=== PATIENT | male | born 1930 | race Caucasian/White ===

== ENCOUNTER 2021-01-08 18:46 | Outpatient (CLI) | payer MEDICARE | END 2021-01-08 18:47 | disposition critical access hospital (66) | LOC: EMS 18:46 | DX: R11.10 Vomiting, unspecified (principal) | CPT/HCPCS: A0425; A0429 ==

== ENCOUNTER 2021-01-08 19:02 | Inpatient (IN) | payer MEDICARE ==
[2021-01-08] MEDS ORDERED: CEFEPIME 2 GM in SODIUM CHLORIDE 0.9% MINIBAG 100 ML IV STA (19:16)
[2021-01-08] MEDS ORDERED: metroNIDAZOLE 500 MG/100 ML 500 MG/100 ML BAG IV STA (19:16)
[2021-01-08] MEDS ORDERED: SODIUM CHLORIDE 0.9% 2,544.66 ML IV STA (19:16)
[2021-01-08 19:29] LABS: BASOPHILS % (AUTO) 0.2 %; EOSINOPHILS % (AUTO) 0.1 %; HCT - HEMATOCRIT 35.3 % (42.0-52.0); HGB - HEMOGLOBIN 12.1 g/dL (14.0-18.0); LYMPHOCYTES # (AUTO) 0.2 10^3/uL (1.5-3.5); LYMPHOCYTES % (AUTO) 1.5 %; MEAN CORPUSCULAR HGB CONC 34.3 g/dL (32.0-36.0); MEAN CORPUSCULAR VOLUME 96.2 fL (80.0-94.0); MEAN PLATELET VOLUME 8.8 fL (7.4-11.4); MONOCYTES # (AUTO) 0.4 10^3/uL (0.0-1.0); MONOCYTES % (AUTO) 2.6 %; NEUTROPHILS # (AUTO) 14.4 10^3/uL (1.5-6.6); NEUTROPHILS % (AUTO) 95.1 %; PLT - PLATELET COUNT 112 10^3/uL (130-450); RED BLOOD COUNT 3.67 10^6/uL (4.70-6.10); RED CELL DISTRIBUTION WIDTH 14.2 % (12.0-15.0); WHITE BLOOD COUNT 15.1 x10^3/uL (4.8-10.8)
[2021-01-08 19:42] LABS: ALBUMIN/GLOBULIN RATIO 1.3 (1.0-2.2); BILIRUBIN,TOTAL 1.7 mg/dL (0.2-1.0); CALCIUM 9.1 mg/dL (8.5-10.3); CREATININE 1.8 mg/dL (0.6-1.2)
--- NOTE | 2021-01-08 19:42 | ED Physician Documentation ---
PD HPI NVD - Stated complaint Stated Complaint: FEVER, VOMITING - Chief complaint Chief Complaint: Fever - History obtained from History obtained from: Patient - History of Present Illness Timing - onset: Today Timing - duration: Hours Timing - details: Gradual onset, Still present Associated symptoms: Abdominal pain, Other (vomiting and fever) Similar symptoms before: Has not had sx before Recently seen: Not recently seen - Additonal information Additional information: 89-year-old male who is a resident of [facility] went for a bus ride today and missed lunch and when he returned he developed nausea vomiting and abdominal pain. He developed a fever with this and was transported to the hospital. The patient presents to the hospital a bit confused and a poor historian. Review of Systems Constitutional: reports: Fever Eyes: denies: Decreased vision Ears: denies: Ear pain Nose: denies: Congestion Throat: denies: Sore throat Cardiac: denies: Chest pain / pressure, Palpitations Respiratory: denies: Dyspnea, Cough GI: reports: Abdominal Pain, Nausea, Vomiting. denies: Diarrhea : denies: Dysuria, Frequency Skin: denies: Rash Musculoskeletal: denies: Neck pain, Back pain, Extremity pain PD PAST MEDICAL HISTORY - Allergies Allergies/Adverse Reactions: Allergies Allergy/AdvReac Type Severity Reaction Status Date / Time No Known Drug Allergies Allergy Verified 01/08/21 19:13 - Social History Does the pt smoke?: No Smoking Status: Never smoker PD ED PE NORMAL - Vitals Vital signs reviewed: Yes (febrile and hypertensive ) - General General: Well developed/nourished, Other (There is an obvious delay in execution of motor commands and the speech is low and delayed.) - HEENT HEENT: Atraumatic, PERRL - Neck Neck: Supple, no meningeal sign - Cardiac Cardiac: RRR, No murmur - Respiratory Respiratory: No respiratory distress, Other (Bibasilar rhonchi is present) - Abdomen Abdomen: Normal bowel sounds, Soft, Non distended, No organomegaly, Other (There is mild tenderness to the right upper quadrant with a positive Villegas sign and the tenderness is not exquisite.) - Back Back: No CVA TTP, No spinal TTP - Derm Derm: Normal color, Warm and dry, No rash - Extremities Extremities: No deformity, Other (There is trace edema bilaterally which patient states is normal) - Neuro Neuro: grader patrol 2-12 intact, No motor deficit, No sensory deficit, Normal speech Eye Opening: Spontaneous Motor: Obeys Commands Verbal: Confused GCS Score: 14 - Psych Psych: Normal mood, Normal affect Results - Vitals Vitals: Vital Signs - 24 hr 01/08/21 01/08/21 01/08/21 19:09 19:25 19:55 Temperature 38.1 C H Heart Rate 89 90 92 Respiratory 14 27 H 23 Rate Blood Pressure 147/72 H 143/71 H 143/71 H O2 Saturation 93 93 95 01/08/21 01/08/21 01/08/21 20:25 20:30 21:03 Temperature 38.1 C H 38.1 C H Heart Rate 88 87 89 Respiratory 19 19 23 Rate Blood Pressure 163/80 H 161/83 H 138/71 H O2 Saturation 94 94 91 L 01/08/21 01/08/21 21:33 22:00 Temperature 38.8 C H 37.2 C Heart Rate 93 90 Respiratory 21 18 Rate Blood Pressure 117/54 L 125/70 O2 Saturation 94 93 Oxygen O2 Source Room air - Labs Labs: Laboratory Tests 01/08/21 01/08/21 01/08/21 19:20 19:20 19:20 WBC 15.1 H RBC 3.67 L Hgb 12.1 L Hct 35.3 L MCV 96.2 H MCH 33.0 H MCHC 34.3 RDW 14.2 Plt Count 112 L MPV 8.8 Neut # (Auto) 14.4 H Lymph # (Auto) 0.2 L [place] # (Auto) 0.4 Eos # (Auto) 0.0 Baso # (Auto) 0.0 Absolute Nucleated RBC 0.00 Nucleated RBC % 0.0 Sodium 138 Potassium 3.0 L Chloride 103 Carbon Dioxide 25 Anion Gap 10.0 BUN 21 H Creatinine 1.8 H Estimated GFR (MDRD) 36 L Glucose 135 H Lactic Acid 1.5 Calcium 9.1 Total Bilirubin 1.7 H AST 20 ALT 18 Alkaline Phosphatase 72 Total Protein 7.0 Albumin 4.0 Globulin 3.0 Albumin/Globulin Ratio 1.3 Urine Color Urine Clarity Urine pH Ur Specific [place] Urine Protein Urine Glucose (UA) Urine Ketones Urine Occult Blood Urine Nitrite Urine Bilirubin Urine Urobilinogen Ur Leukocyte Esterase Urine RBC Urine WBC Ur Squamous Epith Cells Urine Bacteria Urine Mucus Urine Culture Comments 01/08/21 20:05 WBC RBC Hgb Hct MCV MCH MCHC RDW Plt Count MPV Neut # (Auto) Lymph # (Auto) [place] # (Auto) Eos # (Auto) Baso # (Auto) Absolute Nucleated RBC Nucleated RBC % Sodium Potassium Chloride Carbon Dioxide Anion Gap BUN Creatinine Estimated GFR (MDRD) Glucose Lactic Acid Calcium Total Bilirubin AST ALT Alkaline Phosphatase Total Protein Albumin Globulin Albumin/Globulin Ratio Urine Color YELLOW Urine Clarity CLEAR Urine pH 6.0 Ur Specific [place] 1.020 Urine Protein >=300 H Urine Glucose (UA) NEGATIVE Urine Ketones NEGATIVE Urine Occult Blood TRACE-INTA Urine Nitrite NEGATIVE Urine Bilirubin NEGATIVE Urine Urobilinogen 0.2 (NORMAL) Ur Leukocyte Esterase NEGATIVE Urine RBC 0-5 Urine WBC 0-3 Ur Squamous Epith Cells RARE Squamous Urine Bacteria None Seen Urine Mucus Few Strands Urine Culture Comments NOT INDICATED - Rads (name of study) chest Radiology: Prelim report reviewed (Impression: Scattered scarring/atelectasis versus mild aspiration. No acute consolidation. High density presumed calcific granuloma projecting over the right lung base although this could be confirmed with follow-up chest radiographs to document long-term stability given the absence of any prior s), EMP read indepedently, See rad report Procedures - Bedside sono Bedside sono by EMP: With use bedside ultrasound the gallbladder is imaged. it is sonographically mil dly tender and there is evidence of pericholecystic fluid and a thickened gallbladder wall and shadowing stones. The gallbladder is distended to 10cm. PD MEDICAL DECISION MAKING - ED course Complexity details: reviewed results, re-evaluated patient, considered differential, d/w patient, d/w family ED course: Gallbladder ultrasound: Impression: Cholelithiasis and distended gallbladder. Intrahepatic bile duct dilation. Recommend clinical correlation to exclude acute Monica cystitis. No gallbladder wall thickening or pericholecystic fluid. No sonographic Villegas sign. Coarsely echogenic liver suggest hepatic steatosis/diffuse hepatocellular disease. Please correlate with LFTs. Hepatic and renal cyst. 89-year-old male new to the area has some mild dementia and he is more confused than usual today his son presents to the bedside is able to assist with further history. The patient has had kidney cancer and has had one kidney removed. He presents today with a fever elevated white count, potential infiltrate on chest x-ray and he is vomiting with abdominal pain and on initial evaluation has a tender right upper quadrant and concerns for cholecystitis. The patient is administered intravenous fluids cefepime, Flagyl and Tylenol. He is started on sepsis protocol blood cultures were obtained urine is unremarkable.Dr. Davis is consulted in the case and will be available for consultation. A call is placed to the hospitalist Dr. Miranda Fuller at [phone]. Departure - Departure Disposition: 66 [facility] DC/Xfer Clinical Impression: Pneumonia Qualifiers: Pneumonia type: aspiration pneumonia Aspiration pneumonia type: unspecified Laterality: right Lung location: lower lobe of lung Qualified Code(s): J69.0 - Pneumonitis due to inhalation of food and vomit Cholelithiasis Qualifiers: Cholelithiasis location: gallbladder Cholecystitis presence: without cholecystitis Biliary obstruction: without biliary obstruction Qualified Code(s): K80.20 - Calculus of gallbladder without cholecystitis without obstruction Condition: Stable
--- NOTE | 2021-01-08 20:03 | XRAY Report ---
PROCEDURE: Chest 1 View X-Ray INDICATIONS: chest pain TECHNIQUE: One view of the chest was acquired. COMPARISON: None. FINDINGS: Surgical changes and devices: None. Lungs and pleura: No pleural effusions or pneumothorax. Scattered atelectasis. There is high density presumed calcified granuloma projecting in the right lung base measuring 5 mm. Mediastinum: Mediastinal contours appear normal. Heart size is normal. Bones and chest wall: No suspicious bony lesions. Overlying soft tissues appear unremarkable. IMPRESSION: Scattered scarring/atelectasis versus mild aspiration. No acute consolidation. High density presumed calcified granuloma projecting the right lung base although this could be confi rmed with follow-up chest radiographs to document long-term stability given the absence of any prior studies. Reviewed by: Baljit Marsh MD on 01/08/2021 8:01 PM PDT Approved by: Baljit Marsh MD on 01/08/2021 8:01 PM PDT Station ID: [id number]
[2021-01-08] MEDS ORDERED: ACETAMINOPHEN 325 MG TABLET PO STA (20:15)
[2021-01-08 20:16] LABS: BILIRUBIN,URINE NEGATIVE (NEGATIVE); GLUCOSE, URINE (UA) NEGATIVE (NEGATIVE); KETONES,URINE (UA) NEGATIVE (NEGATIVE); LEUKOCYTE ESTERASE, URINE NEGATIVE (NEGATIVE); NITRITE,URINE NEGATIVE (NEGATIVE); OCCULT BLOOD,URINE TRACE-INTA (NEGATIVE); PROTEIN,URINE >=300 mg/dL (NEGATIVE); UROBILINOGEN,URINE 0.2 (NORMAL) E.U./dL (NORMAL)
[2021-01-08 20:24] LABS: BACTERIA,URINE None Seen /HPF (None Seen); CLARITY,URINE CLEAR (CLEAR); MUCUS,URINE Few Strands; RBC,URINE 0-5 /HPF (0-5); SQUAMOUS EPITHELIAL CELL,UR RARE Squamous (<= Few); WBC,URINE 0-3 /HPF (0-3)
[2021-01-08] MEDS ORDERED: POTASSIUM CHLOR 10 MEQ/100 ML 10 MEQ/100 ML BAG IV ONE (20:40)
--- NOTE | 2021-01-08 21:47 | Ultrasound Report ---
PROCEDURE: Abdomen Limited INDICATIONS: RUQ pain fever vomiting TECHNIQUE: Real-time focused scanning was performed of the abdomen, with image documentation. COMPARISON: None. FINDINGS: The liver demonstrates coarse echogenicity and multiple cysts measuring up to 4.8 cm. Gallbladder is distended and measures 9.6 x 5.4 x 5.5 cm. There is a gallstone measuring 1.6 x 1.2 cm with nonmobile appearance. No gallbladder wall thickening, pericholecystic fluid or sonographic Murp hy sign. There is intrahepatic ductal dilatation. Extrahepatic bile ducts are nondilated. Pancreas head is unremarkable. The right kidney measures 14.8 cm in length and there are multiple rig ht renal cysts measuring up to 3.2 cm. IVC appears patent. IMPRESSION: Cholelithiasis and distended gallbladder. Intrahepatic bile duct dilatation. Recommend clinical corre lation to exclude acute cholecystitis. No gallbladder wall thickening or pericholecystic fluid. No so nographic Villegas sign. Coarsely echogenic liver suggesting hepatic steatosis/diffuse hepatocellular disease. Please correlat e with LFTs. Hepatic and renal cysts. Reviewed by: Baljit Echeverria MD on 01/08/2021 9:46 PM PDT Approved by: Baljit Echeverria MD on 01/08/2021 9:46 PM PDT Station ID: [id number]
[2021-01-08] MEDS ORDERED: HYDROmorphone 0.5 MG/0.5 ML SYRINGE IVP PRN (22:07)
[2021-01-08] MEDS ORDERED: HYDROcod/ACETAM 5/325 MG TABLET PO PRN (22:07)
[2021-01-08] MEDS ORDERED: ONDANSETRON 4 MG/2 ML VIAL IVP PRN (22:07)
[2021-01-08] MEDS ORDERED: SODIUM CHLORIDE FLUSH 0.9% 10 ML SYRINGE IVP PRN (22:07)
--- NOTE | 2021-01-08 22:16 | HISTORY & PHYSICAL EXAMINATION ---
Chief Complaint - Chief Complaint Chief Complaint: abdominal pain, nausea/vomiting History of Present Illness - Admitted From Admitted From:: [facility] ED - History Obtained From Records Reviewed: yes History obtained from: patient - History of Present Illness HPI Comment/Other: Patient is 89-year-old male with medical history significant for hypertension, hyperlipidemia, macular degeneration, renal cancer status post left nephrectomy, prostate cancer status post radical prostatectomy who presented to the ED with complaint of epigastric/right upper abdominal pain, nausea and vomiting. He woke up this morning and had breakfast and subsequently did not feel well. Consequently he skipped lunch. Around 315 he was nauseous and experiencing a sharp epigastric/right upper quadrant pain he attempted to eat some bread and drink some orange juice since he had skipped lunch but had a bilous vomitus shortly afterward. His temperature was taken and noted to be 102.1 Fahrenheit. He was noted to be somewhat confused at the time. In the ED work-up included CBC which showed a WBC of 15. His temperature was noted to be 38.8 C. He underwent an abdominal ultrasound which showed cholelithiasis and a dilated intrahepatic bile duct. He also had a chest x-ray done which raised concern for aspiration. As a result he was presented for admission for further treatment. At bedside he denies abdominal pain or nauseous, chest pain, dyspnea History - Past Medical History Cardiovascular: reports: Hypertension, High cholesterol Other Past Medical History: Hx of renal cancer status post left nephrectomy. History of prostate cancer status post radical prostatectomy. Macular degeneration. Bilateral cataracts status post surgery. Melanoma status post skin excision - Past Surgical History Other past surgical history: Prostatectomy, left nephrectomy, bilateral cataract surgery, bunionectomy, skin cancer/melanoma excision, right shoulder surgery, tonsillectomy - Family & Social History Family History Comment/Other: Patient's mother had Alzheimer's. The patient's 2 sons and a daughter all have hypertension. Living arrangement: Assisted living Social History Notes: He resides at [facility]. He moved to [facility] with his son and his family from [facility]. His son resides in [place], [place]. He does not use tobacco products or recreational substances. He drinks a glass of wine with dinner daily. - POLST Patient has POLST: No POLST Status: Full Code Meds/Allgy - Allergies Allergies/Adverse Reactions: Allergies Allergy/AdvReac Type Severity Reaction Status Date / Time No Known Drug Allergies Allergy Verified 01/08/21 19:13 Review of Systems - Constitutional Constitutional: reports: Fever - Eyes Eyes: denies: Pain, Dipolpia - Ears, Nose & Throat Ears, Nose & Throat: denies: Ear pain, Sore throat - Cardiovascular Cariovascular: reports: Edema (1+ pitting edema). denies: Chest pain, Lightheadedness, Syncope, Exertional dyspnea - Respiratory Respiratory: denies: Cough, Sputum production, SOB at rest, SOB with exertion - Gastrointestinal Gastrointestinal: reports: Abdominal pain, Nausea, Vomiting. denies: Abdominal distention, Diarrhea, Coffee grounds emesis, Reflux/heartburn - Genitourinary Genitourinary: denies: Dysuria, Frequency, Urgency, Hematuria, Incontinence, Flank pain - Musculoskeletal Musculoskeletal: denies: Muscle pain, Back pain, Muscle aches - Integumentary Integumentary: denies: Rash, Dryness - Neurological Neurological: denies: General weakness, Headache - Psychiatric Psychiatric: denies: Depression, Anxiety - Endocrine Endocrine: denies: Polyuria, Polydypsia - Hematologic/Lymphatic Hematologic/Lymphatic: denies: Anemia, Bruising, Petechiae Prior Level of Functionality: Patient resides at [facility] in [place]. He is independent of activities of daily living. He is reasonably active for his age. Exam - Vital Signs Vital Signs: Vital Signs x48h Temp Pulse Resp BP Pulse Ox 01/08/21 22:00 37.2 C 90 18 125/70 93 01/08/21 21:33 38.8 C H 93 21 117/54 L 94 01/08/21 21:03 89 23 138/71 H 91 L 01/08/21 20:30 38.1 C H 87 19 161/83 H 94 01/08/21 20:25 38.1 C H 88 19 163/80 H 94 01/08/21 19:55 92 23 143/71 H 95 01/08/21 19:25 90 27 H 143/71 H 93 01/08/21 19:09 38.1 C H 89 14 147/72 H 93 - Physical Exam General Appearance: positive: Alert. negative: Mild distress, Moderate distress Eyes Bilateral: positive: PERRL, EOMI ENT: positive: Pharynx nml Neck: positive: No JVD, Trachea midline Respiratory: positive: Chest non-tender, No respiratory distress, Other (crackles in long bases) Cardiovascular: positive: Regular rate & rhythm, No murmur Abdomen: positive: Non-tender, Nml bowel sounds, No distention Back: positive: Nml inspection Skin: positive: Color nml, No rash, Warm, Dry Extremities: positive: Non-tender, Full ROM, Nml appearance, Pedal edema (1+ bilateral edema) Neurologic/Psychiatric: positive: Oriented x3, Mood/affect nml Conclusion/Plan - Problem List (1) Sepsis Conclusion/Plan: Suspect Cholecystitis and Aspiration Pneumonia Blood cultures drawn Patient started on cefepime and Flagyl IV hydration with Normal saline at 100ml/hr Tylenol, norco and dilaudid prn for pain Dr Russo with General Surgery consulted. She was also contacted by the ED physician (2) Aspiration pneumonia Conclusion/Plan: On cefepime and flagyl Breathing comfortably on room air (3) Cholecystitis Conclusion/Plan: Gall bladder distended with gall stones noted Patient started on cefepime and flagyl for WBC of 15 and fever Blood cultures pending Pain management with Tylenol, norco and/or dilaudid prn General Surgery consulted. (4) Acute kidney injury Conclusion/Plan: Possibly acute on chronic. Patient's creatinine is 1.8 with an estimated GFR of 36. Suspect prerenal cause. 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 We will recheck labs in the morning. (5) Hyperlipidemia Conclusion/Plan: Will resume patient's atorvastatin once verified. - Lab Results Fish Bones: 01/08/21 19:20 01/08/21 19:20 Core Measures - Anticipated LOS I expect patient to be DC'd or transferred within 96 hours.: Yes - DVT/VTE - Prophylaxis VTE/DVT Device ordered at admit?: Yes VTE/DVT Prophylaxis med ordered at admit?: Yes
[2021-01-08] MEDS: SODIUM CHLORIDE 0.9% 1,000 ML IV SCH (23:00)
[2021-01-08 23:22] LABS: B. PARAPERTUSSIS- RESP PCR PAN NOT DETECTED; B. PERTUSSIS- RESP PCR PANEL NOT DETECTED; C. PNEUMONIAE- RESP PCR PANEL NOT DETECTED; CORONAVIRUS 229E-RESP PCR NOT DETECTED; CORONAVIRUS HKU1-RESP PCR NOT DETECTED; CORONAVIRUS NL63-RESP PCR NOT DETECTED; CORONAVIRUS OC43-RESP PCR NOT DETECTED; HUMAN METAPNEUMOVIRUS NOT DETECTED; INFLUENZA A- RESP PCR PANEL NOT DETECTED; INFLUENZA B - RESP PCR PANEL NOT DETECTED; M. PNEUMONIAE- RESP PCR PANEL NOT DETECTED; PARAINFLUENZA VIRUS 1 NOT DETECTED; PARAINFLUENZA VIRUS 2 NOT DETECTED; PARAINFLUENZA VIRUS 3 NOT DETECTED; PARAINFLUENZA VIRUS 4 NOT DETECTED; RHINOVIRUS/ENTEROVIRUS NOT DETECTED; RSV- RESP PCR PANEL NOT DETECTED; SARS-CoV-2 -RESP PCR PANEL NOT DETECTED
[2021-01-09] MEDS: SODIUM CHLORIDE FLUSH 0.9% 10 ML SYRINGE IVP SCH ×3 (00:22→17:41)
[2021-01-09] MEDS: POTASSIUM CHLOR 10 MEQ/100 ML 10 MEQ/100 ML BAG IV SCH ×4 (02:47→06:22)
[2021-01-09] MEDS: metroNIDAZOLE 500 MG/100 ML 500 MG/100 ML BAG IV SCH ×2 (03:47→12:24)
[2021-01-09 05:15] LABS: BASOPHILS % (AUTO) 0.3 %; HCT - HEMATOCRIT 29.3 % (42.0-52.0); HGB - HEMOGLOBIN 10.1 g/dL (14.0-18.0); LYMPHOCYTES % (AUTO) 3.1 %; MEAN CORPUSCULAR HEMOGLOBIN 33.6 pg (27.0-31.0); MEAN CORPUSCULAR HGB CONC 34.5 g/dL (32.0-36.0); MEAN CORPUSCULAR VOLUME 97.3 fL (80.0-94.0); MEAN PLATELET VOLUME 9.3 fL (7.4-11.4); MONOCYTES % (AUTO) 2.3 %; NEUTROPHILS % (AUTO) 92.6 %; PLT - PLATELET COUNT 95 10^3/uL (130-450); RED BLOOD COUNT 3.01 10^6/uL (4.70-6.10); RED CELL DISTRIBUTION WIDTH 14.6 % (12.0-15.0); WHITE BLOOD COUNT 20.1 x10^3/uL (4.8-10.8)
[2021-01-09 05:27] LABS: CALCIUM 8.2 mg/dL (8.5-10.3); CREATININE 1.7 mg/dL (0.6-1.2); POTASSIUM 3.6 mmol/L (3.5-5.0)
[2021-01-09 05:36] LABS: ABNORMAL LYMPHS % (MANUAL) 0 %
[2021-01-09 06:05] LABS: BAND NEUTROPHILS % (MANUAL) 23 %; DIFFERENTIAL COMMENT MANUAL DIFFERENTIAL; LYMPHOCYTES % (MANUAL) 5 %; NEUTROPHILS # (MANUAL) 19.1 10^3/uL (1.5-6.6); PLATELET ESTIMATE, MANUAL DECREASED (<130,000) (NORMAL); RBC MORPHOLOGY (MULTIPLE) NORMAL APPEARANCE (NORMAL)
[2021-01-09] MEDS: SODIUM CHLORIDE 0.9% 1,000 ML IV SCH ×2 (08:13→12:24)
[2021-01-09] MEDS: ACETAMINOPHEN 325 MG TABLET PO PRN ×2 (08:17→17:22)
[2021-01-09] MEDS ORDERED: CEFEPIME 2 GM in SODIUM CHLORIDE 0.9% MINIBAG 100 ML IV SCH (09:00)
--- NOTE | 2021-01-09 12:51 | PROVIDER PROGRESS NOTE ---
Assessment/Plan - Problem List (4) Pre-op evaluation Assessment/Plan: EKG was ordered for pre-op eval. His EKG is abnormal showing first-degree AV block and early R/S transition consistent with cor pulmonale. We will obtain an echo for preop evaluation. This was discussed with Dr. Russo. - Current Meds Current Meds: Current Medications Generic Name Dose Route Start Last Admin Trade Name Freq PRN Reason Stop Dose Admin Acetaminophen 650 mg 01/08/21 22:07 01/09/21 08:17 Acetaminophen 325 Mg Tablet PO 650 mg Q6HR PRN Administration Pain 1 to 4 Sodium Chloride 1,000 mls @ 100 mls/hr 01/08/21 23:00 01/09/21 12:43 Normal Saline 0.9% IV 0 mls/hr .Q10H VKITOR Infusion Cefepime HCl 2 gm/ Sodium 100 mls @ 200 mls/hr 01/09/21 09:00 01/09/21 08:51 Chloride IV Infused BID VIKTOR Infusion Metronidazole 500 mg in 100 mls @ 100 mls/hr 01/09/21 03:00 01/09/21 12:24 Flagyl 500 Mg/100 Ml IV 100 mls/hr Q8H VIKTOR Administration Sodium Chloride 10 ml 01/09/21 01:00 01/09/21 08:19 Sodium Chloride Flush 0.9% 10 Ml Syringe IVP Not Given 0100,0900,1700 VIKTOR - Lab Result Fish Bone Diagrams: 01/09/21 04:50 01/09/21 04:50 - Additional Planning My Orders: My Active Orders 01/09/21 10:20 Echo Transthoracic Complete [ECHO] Routine 01/09/21 Lunch Clear Liquid Diet [DIET] Objective Vital Signs: Vital Signs - 24 hr 01/08/21 01/08/21 01/08/21 19:09 19:25 19:55 Temperature 38.1 C H Heart Rate 89 90 92 Heart Rate [ Brachial] Respiratory 14 27 H 23 Rate Blood Pressure 147/72 H 143/71 H 143/71 H Blood Pressure [Left Brachial artery] O2 Saturation 93 93 95 01/08/21 01/08/21 01/08/21 20:25 20:30 21:03 Temperature 38.1 C H 38.1 C H Heart Rate 88 87 89 Heart Rate [ Brachial] Respiratory 19 19 23 Rate Blood Pressure 163/80 H 161/83 H 138/71 H Blood Pressure [Left Brachial artery] O2 Saturation 94 94 91 L 01/08/21 01/08/21 01/08/21 21:33 22:00 22:30 Temperature 38.8 C H 37.2 C Heart Rate 93 90 87 Heart Rate [ Brachial] Respiratory 21 18 21 Rate Blood Pressure 117/54 L 125/70 122/67 Blood Pressure [Left Brachial artery] O2 Saturation 94 93 92 01/08/21 01/09/21 01/09/21 22:54 00:00 04:44 Temperature 36.9 C 36.6 C 36.7 C Heart Rate Heart Rate [ 86 76 73 Brachial] Respiratory 18 16 17 Rate Blood Pressure Blood Pressure 131/61 H 119/59 L 112/46 L [Left Brachial artery] O2 Saturation 95 01/09/21 01/09/21 08:06 12:21 Temperature 36.5 C 36.9 C Heart Rate Heart Rate [ 67 69 Brachial] Respiratory 16 16 Rate Blood Pressure Blood Pressure 126/64 132/68 H [Left Brachial artery] O2 Saturation 94 94 Oxygen O2 Source Room air I&O (Last 24 Hrs): Intake and Output Totals x24h 01/07/21 01/08/21 01/09/21 23:59 23:59 23:59 Intake Total 2844.66 2000.001 Output Total 850 Balance 2844.66 1150.001 - Results Results: Laboratory Results WBC 20.1 x10^3/uL (4.8-10.8) H 01/09/21 04:50 RBC 3.01 10^6/uL (4.70-6.10) L 01/09/21 04:50 Hgb 10.1 g/dL (14.0-18.0) L 01/09/21 04:50 Hct 29.3 % (42.0-52.0) L 01/09/21 04:50 MCV 97.3 fL (80.0-94.0) H 01/09/21 04:50 MCH 33.6 pg (27.0-31.0) H 01/09/21 04:50 MCHC 34.5 g/dL (32.0-36.0) 01/09/21 04:50 RDW 14.6 % (12.0-15.0) 01/09/21 04:50 Plt Count 95 10^3/uL (130-450) L 01/09/21 04:50 MPV 9.3 fL (7.4-11.4) 01/09/21 04:50 Neut # (Auto) Not Reportable 01/09/21 04:50 Lymph # (Auto) Not Reportable 01/09/21 04:50 [place] # (Auto) Not Reportable 01/09/21 04:50 Eos # (Auto) Not Reportable 01/09/21 04:50 Baso # (Auto) Not Reportable 01/09/21 04:50 Absolute Nucleated RBC Not Reportable 01/09/21 04:50 Total Counted 100 01/09/21 04:50 Band Neuts % (Manual) 23 % (0-10) H 01/09/21 04:50 Abnorm Lymph % (Manual) 0 % 01/09/21 04:50 Nucleated RBC % Not Reportable 01/09/21 04:50 Neutrophils # (Manual) 19.1 10^3/uL (1.5-6.6) H 01/09/21 04:50 Lymphocytes # (Manual) 1.0 10^3/uL (1.5-3.5) L 01/09/21 04:50 Monocytes # (Manual) 0.0 10^3/uL (0.0-1.0) 01/09/21 04:50 Eosinophils # (Manual) 0.0 10^3/uL (0-0.7) 01/09/21 04:50 Basophils # (Manual) 0.0 10^3/uL (0-0.1) 01/09/21 04:50 Differential Comment MANUAL DIFFERENTIAL 01/09/21 04:50 Platelet Estimate DECREASED (<130,000) (NORMAL) 01/09/21 04:50 RBC Morph Micro Appear NORMAL APPEARANCE (NORMAL) 01/09/21 04:50 Sodium 139 mmol/L (135-145) 01/09/21 04:50 Potassium 3.6 mmol/L (3.5-5.0) 01/09/21 04:50 Chloride 108 mmol/L (101-111) 01/09/21 04:50 Carbon Dioxide 23 mmol/L (21-32) 01/09/21 04:50 Anion Gap 8.0 (6-13) 01/09/21 04:50 BUN 21 mg/dL (6-20) H 01/09/21 04:50 Creatinine 1.7 mg/dL (0.6-1.2) H 01/09/21 04:50 Estimated GFR (MDRD) 38 (>89) L 01/09/21 04:50 Glucose 120 mg/dL (70-100) H 01/09/21 04:50 Lactic Acid 1.5 mmol/L (0.5-2.2) 01/08/21 19:20 Calcium 8.2 mg/dL (8.5-10.3) L 01/09/21 04:50 Total Bilirubin 1.7 mg/dL (0.2-1.0) H 01/08/21 19:20 AST 20 IU/L (10-42) 01/08/21 19:20 ALT 18 IU/L (10-60) 01/08/21 19:20 Alkaline Phosphatase 72 IU/L (42-121) 01/08/21 19:20 Total Protein 7.0 g/dL (6.7-8.2) 01/08/21 19:20 Albumin 4.0 g/dL (3.2-5.5) 01/08/21 19:20 Globulin 3.0 g/dL (2.1-4.2) 01/08/21 19:20 Albumin/Globulin Ratio 1.3 (1.0-2.2) 01/08/21 19:20 Urine Color YELLOW 01/08/21 20:05 Urine Clarity CLEAR (CLEAR) 01/08/21 20:05 Urine pH 6.0 PH (5.0-7.5) 01/08/21 20:05 Ur Specific [place] 1.020 (1.002-1.030) 01/08/21 20:05 Urine Protein >=300 mg/dL (NEGATIVE) H 01/08/21 20:05 Urine Glucose (UA) NEGATIVE mg/dL (NEGATIVE) 01/08/21 20:05 Urine Ketones NEGATIVE mg/dL (NEGATIVE) 01/08/21 20:05 Urine Occult Blood TRACE-INTA (NEGATIVE) 01/08/21 20:05 Urine Nitrite NEGATIVE (NEGATIVE) 01/08/21 20:05 Urine Bilirubin NEGATIVE (NEGATIVE) 01/08/21 20:05 Urine Urobilinogen 0.2 (NORMAL) E.U./dL (NORMAL) 01/08/21 20:05 Ur Leukocyte Esterase NEGATIVE (NEGATIVE) 01/08/21 20:05 Urine RBC 0-5 /HPF (0-5) 01/08/21 20:05 Urine WBC 0-3 /HPF (0-3) 01/08/21 20:05 Ur Squamous Epith Cells RARE Squamous (<= Few) 01/08/21 20:05 Urine Bacteria None Seen /HPF (None Seen) 01/08/21 20:05 Urine Mucus Few Strands 01/08/21 20:05 Urine Culture Comments NOT INDICATED 01/08/21 20:05 Nasal Adenovirus (PCR) NOT DETECTED 01/08/21 22:25 Nasal B. parapertussis DNA (PCR) NOT DETECTED 01/08/21 22:25 Nasal Coronavir 229E PCR NOT DETECTED 01/08/21 22:25 Nasal Coronavir HKU1 PCR NOT DETECTED 01/08/21 22:25 Nasal Coronavir NL63 PCR NOT DETECTED 01/08/21 22:25 Nasal Coronavir OC43 PCR NOT DETECTED 01/08/21 22:25 Nasal Enterovir/Rhinovir PCR NOT DETECTED 01/08/21 22:25 Nasal Influenza B PCR NOT DETECTED 01/08/21 22:25 Nasal Influenza A PCR NOT DETECTED 01/08/21 22:25 Nasal Parainfluen 1 PCR NOT DETECTED 01/08/21 22:25 Nasal Parainfluen 2 PCR NOT DETECTED 01/08/21 22:25 Nasal Parainfluen 3 PCR NOT DETECTED 01/08/21 22:25 Nasal Parainfluen 4 PCR NOT DETECTED 01/08/21 22:25 Nasal RSV (PCR) NOT DETECTED 01/08/21 22:25 Nasal B.pertussis DNA PCR NOT DETECTED 01/08/21 22:25 Nasal C.pneumoniae (PCR) NOT DETECTED 01/08/21 22:25 Syed Human Metapneumo PCR NOT DETECTED 01/08/21 22:25 Nasal M.pneumoniae (PCR) NOT DETECTED 01/08/21 22:25 Nasal SARS-CoV-2 (PCR) NOT DETECTED 01/08/21 22:25
--- NOTE | 2021-01-09 13:11 | CONSULTATION NOTE ---
Referring Provider Name of Referring Provider:: Dr. Rosales Consult Date: 01/09/21 Chief Complaint - Chief Complaint Chief Complaint: Abdominal pain with nausea and leukocytosis History of Present Illness - Admitted From Admitted From:: ED - History Obtained From Records Reviewed: Provider's notes History obtained from: Patient and his son Exam Limitations: None - History of Present Illness HPI Comment/Other: Mr. Oliva is a very pleasant gentleman of 89 years who lives at [facility]. He reports he has enjoyed good health most of his life. Yesterday afternoon, he developed acute onset of nausea followed by vomiting. He was noted to be febrile and was therefore transported to the hospital for evaluation. In the ED, he was seen and evaluated by Dr. Servin. He was found to have cholelithiasis without evidence of cholecystitis and some concern for possible aspiration pneumonia on CXR. Intra hepatic biliary ductal dilitation was also noted on US. He was minimally tender to palpation in the right upper quadrant at that time and was noted to have a negative Villegas sign. It is notable that his WBC count was 15 in the ED and bilirubin was slightly elevated at 1.7. He was admitted to the medicine service for further workup and started on Cefepime and Flagyl. Over night, he reports his right upper quadrant pain has increased and he has developed chills this afternoon. He denies any shortness of breath, cough, or sputum production. His WBCs have increased to 20K. History - Past Medical History Cardiovascular: reports: Hypertension, High cholesterol Respiratory: reports: Pneumonia, Other Neuro: reports: Dementia, Other Endocrine/Autoimmune: reports: None GI: reports: Cholelithiasis, Other : reports: Incontinence, Kidney stones Musculoskeletal: reports: Chronic back pain Derm: reports: Eczema, Other Other Past Medical History: Hx of renal cancer status post left nephrectomy. History of prostate cancer status post radical prostatectomy. Macular degeneration. Bilateral cataracts status post surgery. Melanoma status post skin excision - Past Surgical History Derm: reports: Skin cancer surgery Other past surgical history: Prostatectomy, left nephrectomy, bilateral cataract surgery, bunionectomy, skin cancer/melanoma excision, right shoulder surgery, tonsillectomy - Family & Social History Family History Comment/Other: Patient's mother had Alzheimer's. The patient's 2 sons and a daughter all have hypertension. Living arrangement: Assisted living Social History Notes: He resides at [facility]. He moved to [facility] with his son and his family from [facility]. His son resides in [place], [place]. He does not use tobacco products or recreational substances. He drinks a glass of wine with dinner daily. - POLST Patient has POLST: No POLST Status: Full Code Meds/Allgy - Allergies Allergies/Adverse Reactions: Allergies Allergy/AdvReac Type Severity Reaction Status Date / Time No Known Drug Allergies Allergy Verified 01/08/21 19:13 Review of Systems - Constitutional Constitutional: reports: Fatigue, Fever, Chills, Malaise, Poor appetite - Cardiovascular Cariovascular: denies: Chest pain, Lightheadedness - Respiratory Respiratory: denies: Cough, Sputum production, Orthopnea - Gastrointestinal Gastrointestinal: reports: Abdominal pain, Nausea, Vomiting, Poor appetite. denies: Constipation, Diarrhea, Change in bowel habits, Rectal bleeding, Black stools, Bloody stools - Genitourinary Genitourinary: denies: Dysuria, Frequency - All Other Systems All Other Systems: reports: Reviewed and negative Exam - Vital Signs Reviewed Vital Signs: Yes Vital Signs: Vital Signs x48h Temp Pulse Resp BP Pulse Ox 01/09/21 12:21 36.9 C 69 16 132/68 H 94 01/09/21 08:06 36.5 C 67 16 126/64 94 - Physical Exam General Appearance: positive: No acute distress, Alert Eyes Bilateral: positive: Normal inspection, PERRL, EOMI ENT: positive: ENT inspection nml, Pharynx nml, No signs of dehydration Neck: positive: Nml inspection Respiratory: positive: Chest non-tender, No respiratory distress Cardiovascular: positive: Regular rate & rhythm Peripheral Pulses: positive: 0 Abdomen: positive: No distention, Tenderness (minimal), Guarding. negative: Rebound, Mass Back: positive: CVA tenderness (R). negative: CVA tenderness (L) Skin: positive: Color nml Neurologic/Psychiatric: positive: Oriented x3 Conclusion and Plan - Lab Results Microbiology Results 01/08/21 19:20 Blood Blood Culture (PCR) - Final Laboratory Results 01/09/21 04:50: Sodium 139, Potassium 3.6, Chloride 108, Carbon Dioxide 23, Anion Gap 8.0, BUN 21 H, Creatinine 1.7 H, Estimated GFR (MDRD) 38 L, Glucose 120 H, Calcium 8.2 L 01/09/21 04:50: WBC 20.1 H, RBC 3.01 L, Hgb 10.1 L, Hct 29.3 L, MCV 97.3 H, MCH 33.6 H, MCHC 34.5, RDW 14.6, Plt Count 95 L, MPV 9.3, Neut # (Auto) Not Reportable, Lymph # (Auto) Not Reportable, [place] # (Auto) Not Reportable, Eos # (Auto) Not Reportable, Baso # (Auto) Not Reportable, Absolute Nucleated RBC Not Reportable, Total Counted 100, Band Neuts % (Manual) 23 H, Abnorm Lymph % (Manual) 0, Nucleated RBC % Not Reportable, Neutrophils # (Manual) 19.1 H, Lymphocytes # (Manual) 1.0 L, Monocytes # (Manual) 0.0, Eosinophils # (Manual) 0.0, Basophils # (Manual) 0.0, Differential Comment MANUAL DIFFERENTIAL, Platelet Estimate DECREASED (<130,000), RBC Morph Micro Appear NORMAL APPEARANCE 01/08/21 22:25: Nasal Adenovirus (PCR) NOT DETECTED, Nasal B. parapertussis DNA (PCR) NOT DETECTED, Nasal Coronavir 229E PCR NOT DETECTED, Nasal Coronavir HKU1 PCR NOT DETECTED, Nasal Coronavir NL63 PCR NOT DETECTED, Nasal Coronavir OC43 PCR NOT DETECTED, Nasal Enterovir/Rhinovir PCR NOT DETECTED, Nasal Influenza B PCR NOT DETECTED, Nasal Influenza A PCR NOT DETECTED, Nasal Parainfluen 1 PCR NOT DETECTED, Nasal Parainfluen 2 PCR NOT DETECTED, Nasal Parainfluen 3 PCR NOT DETECTED, Nasal Parainfluen 4 PCR NOT DETECTED, Nasal RSV (PCR) NOT DETECTED, Nasal B.pertussis DNA PCR NOT DETECTED, Nasal C.pneumoniae (PCR) NOT DETECTED, Syed Human Metapneumo PCR NOT DETECTED, Nasal M.pneumoniae (PCR) NOT DETECTED, Nasal SARS-CoV-2 (PCR) NOT DETECTED 01/08/21 20:05: Urine Color YELLOW, Urine Clarity CLEAR, Urine pH 6.0, Ur Specific [place] 1.020, Urine Protein >=300 H, Urine Glucose (UA) NEGATIVE, Urine Ketones NEGATIVE, Urine Occult Blood TRACE-INTA, Urine Nitrite NEGATIVE, Urine Bilirubin NEGATIVE, Urine Urobilinogen 0.2 (NORMAL), Ur Leukocyte Esterase NEGATIVE, Urine RBC 0-5, Urine WBC 0-3, Ur Squamous Epith Cells RARE Squamous, Urine Bacteria None Seen, Urine Mucus Few Strands, Urine Culture Comments NOT INDICATED 01/08/21 19:20: Lactic Acid 1.5 01/08/21 19:20: Sodium 138, Potassium 3.0 L, Chloride 103, Carbon Dioxide 25, Anion Gap 10.0, BUN 21 H, Creatinine 1.8 H, Estimated GFR (MDRD) 36 L, Glucose 135 H, Calcium 9.1, Total Bilirubin 1.7 H, AST 20, ALT 18, Alkaline Phosphatase 72, Total Protein 7.0, Albumin 4.0, Globulin 3.0, Albumin/Globulin Ratio 1.3 01/08/21 19:20: WBC 15.1 H, RBC 3.67 L, Hgb 12.1 L, Hct 35.3 L, MCV 96.2 H, MCH 33.0 H, MCHC 34.3, RDW 14.2, Plt Count 112 L, MPV 8.8, Neut # (Auto) 14.4 H, Lymph # (Auto) 0.2 L, [place] # (Auto) 0.4, Eos # (Auto) 0.0, Baso # (Auto) 0.0, Absolute Nucleated RBC 0.00, Nucleated RBC % 0.0 - Diagnostic Imaging Results Diagnostic Imaging Results: positive: Final report reviewed Diagnostic Imaging Results Comments: Final Report PT NAME: NIURKA OLIVA MR#: [id number] REG ER/ED AGE: 89 CI DT/TM: 01/08/21 PCP: : 1930 ATT: SEX: M ORD: Mert diallo MD EXAM: [id number] ([id number]) PROCEDURE: Abdomen Limited INDICATIONS: RUQ pain fever vomiting TECHNIQUE: Real-time focused scanning was performed of the abdomen, with image documentation. COMPARISON: None. FINDINGS: The liver demonstrates coarse echogenicity and multiple cysts measuring up to 4.8 cm. Gallbladder is distended and measures 9.6 x 5.4 x 5.5 cm. There is a gallstone measuring 1.6 x 1.2 cm with nonmobile appearance. No gallbladder wall thickening, pericholecystic fluid or sonographic Villegas sign. There is intrahepatic ductal dilatation. Extrahepatic bile ducts are nondilated. Pancreas head is unremarkable. The right kidney measures 14.8 cm in length and there are multiple right renal cysts measuring up to 3.2 cm. IVC appears patent. IMPRESSION: Cholelithiasis and distended gallbladder. Intrahepatic bile duct dilatation. Recommend clinical correlation to exclude acute cholecystitis. No gallbladder wall thickening or pericholecystic fluid. No sonographic Villegas sign. Coarsely echogenic liver suggesting hepatic steatosis/diffuse hepatocellular disease. Please correlate with LFTs. Hepatic and renal cysts. Reviewed by: Baljit Marsh MD on 01/08/2021 9:46 PM PDT Approved by: Baljit Marsh MD on 01/08/2021 9:46 PM PDT Station ID: [id number]: [facility] Reading Radiologist: Baljit Marsh MD Releasing Radiologist: Baljit Marsh MD Released Date Time: 01/08/212145 Final Report PT NAME: NIURKA OLIVA MR#: [id number] REG ER/ED AGE: 89 CI DT/TM: 01/08/21 PCP: : 1930 ATT: SEX: M ORD: Mert diallo MD EXAM: [id number] ([id number]) PROCEDURE: Chest 1 View X-Ray INDICATIONS: chest pain TECHNIQUE: One view of the chest was acquired. COMPARISON: None. FINDINGS: Surgical changes and devices: None. Lungs and pleura: No pleural effusions or pneumothorax. Scattered atelectasis. There is high density presumed calcified granuloma projecting in the right lung base measuring 5 mm. Mediastinum: Mediastinal contours appear normal. Heart size is normal. Bones and chest wall: No suspicious bony lesions. Overlying soft tissues appear unremarkable. IMPRESSION: Scattered scarring/atelectasis versus mild aspiration. No acute consolidation. High density presumed calcified granuloma projecting the right lung base although this could be confirmed with follow-up chest radiographs to document long-term stability given the absence of any prior studies. - Diagnosis Diagnosis: Cholelithiasis with significant concern for ascending cholangitis - Plan Plan: With the escalation of the patient's symptoms and onset of chills, I am concerned about ascending cholangitis. There is still some question regarding pneumonia but this seems less likely. I have recommended percutaneous drainage of the gall bladder followed by elective cholecystectomy at a later time and under ideal physiologic conditions. Additionally, I would recheck liver function studies. If bili remains high, he may also benefit from ERCP.
[2021-01-09 14:33] LABS: ALBUMIN 3.2 g/dL (3.2-5.5); BILIRUBIN,DIRECT 0.2 mg/dL (0.1-0.5); BILIRUBIN,TOTAL 1.4 mg/dL (0.2-1.0); TOTAL PROTEIN 5.7 g/dL (6.7-8.2)
--- NOTE | 2021-01-09 15:23 | Discharge Plan ---
Discharge Plan Problem Reviewed?: Yes Disposition: 02 Transfer Acute Care Hosp Condition: Stable No Smoking: If you smoke, Please STOP! Call for help.
--- NOTE | 2021-01-09 15:24 | DISCHARGE SUMMARY ---
Discharge Summary Admit Date: 01/08/21 Discharge Date: 01/09/21 Discharging Provider: Dr Margi Rosales Primary Care Provider: ARIS Romero Code Status: Attempt Resuscitation Condition at Discharge: Fair Discharge Disposition: 02 Transfer Acute Care Hosp Discharge Facility Name: [facility] History of Present Illness: From the admission H&P of Dr Jeff Abreu: Patient is 89-year-old male who moved from [place] to [facility] 4 months ago, lives at an assisted living facility, his son lives in [place]. The patient has medical history significant for hypertension, hyperlipidemia, macular degeneration, renal cancer status post left nephrectomy, prostate cancer status post radical prostatectomy who presented to the ED with complaint of epigastric/right upper abdominal pain, nausea and vomiting. He woke up this morning and had breakfast and subsequently did not feel well. Consequently he skipped lunch. Around 1515 he was nauseous and experiencing a sharp epigastric/right upper quadrant pain he attempted to eat some bread and drink some orange juice since he had skipped lunch but had a bilous vomitus shortly afterward. His temperature was taken and noted to be 102.1 Fahrenheit. He was noted to be somewhat confused at the time. In the ED work-up included CBC which showed a WBC of 15. His temperature was noted to be 38.8 C. He underwent an abdominal ultrasound which showed agustina lithiasis and a dilated intrahepatic bile duct. He also had a chest x-ray done which raised concern for aspiration. As a result he was presented for admission for further treatment. - HOSPITAL COURSE Hospital Course: (1) Sepsis WBC was elevated, 23% Bands seen, but Lactic acid level was normal. Suspect his sepsis was from bacteremia from cholecystitis as the source of his sepsis and Aspiration Pneumonia was also found. Patient was started on empiric iv Cefepime and iv Flagyl, also IV hydration with Normal saline at 100ml/hr, Tylenol, norco and dilaudid prn ordered for pain. His WBC kristina from 15 to 20 the following day. (2) Gram neg bacteremia On his 2nd day, the blood cultures quickly turned positive for gram-negative bacteremia. He was continued on his empiric IV cefepime and IV Flagyl. Identification and sensitivities were pending at the time of transfer. (3) Cholecystitis Gall bladder was distended with gall stones noted y US. On the following day his right upper quadrant pain was more extensive, he was having chills, but no fever spike and there was no further nausea or vomiting. Bilirubin was 1.7 at admission, then 1.4 the next day. General Surgery was consulted and saw the pt, and felt he may be having ascending cholangitis, given the rising WBC. The surgeon recommended transferring the patient for placement of cholecystotomy tube, and to have a possible ERCP, and eventual cholecystectomy. The patient was accepted in transfer by Dr Agosto (Surgeon) to [facility], on the Surgical service, and was transferred ther by ambulance in hemodynamically stable condition. (4) Aspiration pneumonia He was on cefepime and flagyl. Saturations were stable and he was breathing comfortably on room air. (5) Acute kidney injury Possibly this was acute on chronic kidney disease, but we had no prior labs at this facility on this patient. 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 Suspect a prerenal cause with this vomiting presentation. He received IV hydration with normal saline at 100 mls/hour. (6) Hyperlipidemia Patient's was on atorvastatin, which was on hold. - ALLERGIES Allergies/Adverse Reactions: Allergies Allergy/AdvReac Type Severity Reaction Status Date / Time No Known Drug Allergies Allergy Verified 01/08/21 19:13 - PHYSICAL EXAM AT DISCHARGE General Appearance: positive: No acute distress, Alert Eyes Bilateral: positive: Normal inspection, EOMI ENT: positive: ENT inspection nml, No signs of dehydration Neck: positive: Nml inspection, No JVD Respiratory: positive: No respiratory distress, Breath sounds nml Cardiovascular: positive: Regular rate & rhythm, No murmur Abdomen: positive: Other (Mildly distended, no guarding or rebound, diminished bowel sounds diffusely.) Skin: positive: Warm, Dry Neurologic/Psychiatric: positive: Oriented x3 - LABS Result Diagrams: 01/09/21 04:50 01/09/21 04:50 - DIAGNOSTIC IMAGING Diagnostic Imaging Results: Final report reviewed - SEPSIS Sepsis Criteria: Recorded Temperature greater than 38.3C or Less than 36C, WBC count greater than 10% bands, WBC count greater than 12,000 or less than 4000 - FOLLOW UP Follow Up: This will be determined after his hospitalization at [facility]. - TIME SPENT Time Spent in Discharge (Minutes): 45
[2021-01-09 16:59] VITALS: BP 140/71
== END 2021-01-09 18:00 | disposition short-term general hospital (02) | DRG 871 ==
LOC: ED 19:02 → MS2 22:07
PROVIDERS: ADMIT Internal Medicine; ATTEND Internal Medicine
DX: A41.50 Gram-negative sepsis, unspecified (principal); A41.9 Sepsis, unspecified organism; J69.0 Pneumonitis due to inhalation of food and vomit; N17.9 Acute kidney failure, unspecified; K80.61 Calculus of gallbladder and bile duct with cholecystitis, unspecified, with obstruction; K80.20 Calculus of gallbladder without cholecystitis without obstruction; I12.9 Hypertensive chronic kidney disease with stage 1 through stage 4 chronic kidney disease, or unspecified chronic kidney disease; N18.9 Chronic kidney disease, unspecified; E78.5 Hyperlipidemia, unspecified; H35.30 Unspecified macular degeneration; Z85.46 Personal history of malignant neoplasm of prostate; F03.90 Unspecified dementia, unspecified severity, without behavioral disturbance, psychotic disturbance, mood disturbance, and anxiety; Z85.528 Personal history of other malignant neoplasm of kidney; Z90.79 Acquired absence of other genital organ(s); Z85.820 Personal history of malignant melanoma of skin; Z90.5 Acquired absence of kidney; Z20.822 Contact with and (suspected) exposure to COVID-19
CPT/HCPCS: 36415; 71045; 76705; 80048; 80053; 80076; 81001; 83605; 85025; 87040; 87077; 87150; 87181; 87631; 93005; 93306; 96365; 96366; 96368; 99284; 99285; A9270; 0202U; 87086

== ENCOUNTER 2021-01-09 17:33 | Outpatient (CLI) | payer MEDICARE | END 2021-01-09 17:34 | disposition short-term general hospital (02) | LOC: EMS 17:33 | PROVIDERS: ATTEND Internal Medicine | DX: K81.9 Cholecystitis, unspecified (principal); J69.0 Pneumonitis due to inhalation of food and vomit; R78.81 Bacteremia; Z74.01 Bed confinement status | CPT/HCPCS: A0425; A0428 ==

== ENCOUNTER 2021-11-02 09:36 | Emergency (ER) | payer MEDICARE ==
--- NOTE | 2021-11-02 10:20 | ED Physician Documentation ---
PD HPI BACK PAIN - Stated complaint Stated Complaint: BACK PAIN/SOA - Chief complaint Chief Complaint: Trauma Ch/Bk - History obtained from History obtained from: Patient, Family - History of Present Illness Timing - onset: How many hours ago (2-3), Today Timing - duration: Hours Timing - details: Abrupt onset (he was taking morning meds and choked briefly on a pill. He says he got off balance as he lurched with the coughing, and fell backward, striking right posterolateral lower ribs and flank as he fell. Pain in that area. No dyspnea. No head/neck injury.), Still present Location: Mid, Right Quality: Pain, Sharp. No: Tearing, Aching Associated symptoms: No: Fever, Weakness, Numbness Worsened by: Movement, Palpation Contributing factors: Trauma (fell). No: Lifting, Twisting Similar symptoms before: Has not had sx before Review of Systems Constitutional: denies: Fever, Chills Nose: denies: Rhinorrhea / runny nose, Congestion Throat: denies: Sore throat Cardiac: reports: Pedal edema (chronic but more lately. Wears compression socks usually during the day.). denies: Palpitations, Calf pain Respiratory: denies: Cough GI: reports: Abdominal Pain (since the fall, pain right upper abd as well as right lower ribs.). denies: Nausea, Vomiting, Diarrhea Skin: denies: Abrasion (s), Laceration (s) Musculoskeletal: denies: Neck pain Neurologic: denies: Focal weakness, Numbness, Altered mental status, Headache, Head injury, LOC PD PAST MEDICAL HISTORY - Past Medical History Cardiovascular: Hypertension, High cholesterol Respiratory: Pneumonia, Other Neuro: Dementia, Other Endocrine/Autoimmune: None GI: Cholelithiasis, Other : Incontinence, Kidney stones Musculoskeletal: Chronic back pain Derm: Eczema, Other - Past Surgical History Derm: Skin cancer surgery - Allergies Allergies/Adverse Reactions: Allergies Allergy/AdvReac Type Severity Reaction Status Date / Time No Known Drug Allergies Allergy Verified 11/02/21 09:57 - Social History Does the pt smoke?: No Smoking Status: Never smoker - POLST Patient has POLST: No POLST Status: Full Code PD ED PE NORMAL - Vitals Vital signs reviewed: Yes - General General: Alert and oriented X 3, No acute distress, Well developed/nourished - HEENT HEENT: Atraumatic - Neck Neck: Supple, no meningeal sign, No bony TTP - Cardiac Cardiac: RRR, No murmur - Respiratory Respiratory: Clear bilaterally, Other (tender posterolateral right lower ribs without crepitance. NO noted bruising. NO spinal tenderness. ) - Abdomen Abdomen: Normal bowel sounds, Soft, Non distended, No organomegaly, Other (right upper abd tender with some local guarding, but no rebound nor percussion tenderness. ) - Back Back: No spinal TTP, Other (tender right flank area. ) - Derm Derm: Normal color, Warm and dry - Extremities Extremities: No calf tenderness / cord, Other (1+ edema in both ankles/lower legs. ) - Neuro Neuro: Alert and oriented X 3, No motor deficit, No sensory deficit, Normal speech Eye Opening: Spontaneous Motor: Obeys Commands Verbal: Oriented GCS Score: 15 Results - Vitals Vitals: Oxygen O2 Source Room air - Labs Labs: Laboratory Tests 11/02/21 11/02/21 11/02/21 10:46 10:46 10:46 WBC 9.4 RBC 3.33 L Hgb 11.2 L Hct 31.8 L MCV 95.5 H MCH 33.6 H MCHC 35.2 RDW 14.0 Plt Count 151 MPV 9.6 Neut # (Auto) 7.6 H Lymph # (Auto) 1.0 L [place] # (Auto) 0.7 Eos # (Auto) 0.1 Baso # (Auto) 0.0 Absolute Nucleated RBC 0.00 Nucleated RBC % 0.0 Sodium 138 Potassium 3.5 Chloride 105 Carbon Dioxide 23 Anion Gap 10.0 BUN 19 Creatinine 1.8 H Estimated GFR (MDRD) 36 L Glucose 113 H Calcium 8.9 Magnesium 2.1 Total Bilirubin 1.1 H AST 26 ALT 21 Alkaline Phosphatase 92 B-Natriuretic Peptide 303 H Total Protein 6.6 L Albumin 3.6 Globulin 3.0 Albumin/Globulin Ratio 1.2 Lipase 37 - Rads (name of study) abd/chest/abd CT Radiology: Prelim report reviewed (no fractures nor organ injury. renal cyst noted. small lung nodules less than 4 mm. ), See rad report PD MEDICAL DECISION MAKING - ED course Complexity details: reviewed results (no fractures nor acute organ injuries. Incidental findings conveyed and copies of reports to son. comparison with US last year shows similar renal cyst. ), considered differential, d/w patient, d/w family (son) Departure - Departure Disposition: 01 Home, Self Care Clinical Impression: Leg edema, Renal cyst, Choking episode Fall from slip, trip, or stumble Qualifiers: Encounter type: initial encounter Qualified Code(s): W01.0XXA - Fall on same level from slipping, tripping and stumbling without subsequent striking against object, initial encounter Contusion, flank Qualifiers: Encounter type: initial encounter Qualified Code(s): S30.1XXA - Contusion of abdominal wall, initial encounter Condition: Stable Record reviewed to determine appropriate education?: Yes Instructions: ED Contusion Back Comments: I would suggest Tylenol/acetaminophen 500 to 650 mg 4 times daily for the next several days to week. To that you could add sparingly a dose of ibuprofen or naproxen 1 to 2 tablets twice daily for the next 2-3 days. Not to continue that longer than that timeframe. To rely mainly on the Tylenol for pain improvement. Activity as tolerated based on comfort. Your CT scan showed no obvious fractures nor organ injury. There was incidentally cysts noted on your right kidney. I did look back at your ultr asound from December 2020 and it showed a similar cyst of that size at that point so appears stable. There were several small lung nodules noted that were very small in size and may indicate repeat imaging at an interval to ensure nothing getting bigger. Follow-up with your primary care regarding that. Discharge Date/Time: 11/02/21 13:40
[2021-11-02] MEDS ORDERED: HYDROmorphone 1 MG/ML CARPUJECT IVP STA (10:36)
[2021-11-02] MEDS: ACETAMINOPHEN 325 MG TABLET PO STA ×2 (10:49→10:53)
[2021-11-02] MEDS ORDERED: IOVERSOL 320 100 ML VIAL IVP ONE ×2 (10:55→11:52)
[2021-11-02 10:58] LABS: BASOPHILS % (AUTO) 0.2 %; EOSINOPHILS # (AUTO) 0.1 10^3/uL (0.0-0.7); EOSINOPHILS % (AUTO) 1.3 %; HCT - HEMATOCRIT 31.8 % (42.0-52.0); HGB - HEMOGLOBIN 11.2 g/dL (14.0-18.0); LYMPHOCYTES % (AUTO) 10.1 %; MEAN CORPUSCULAR HEMOGLOBIN 33.6 pg (27.0-31.0); MEAN CORPUSCULAR HGB CONC 35.2 g/dL (32.0-36.0); MEAN CORPUSCULAR VOLUME 95.5 fL (80.0-94.0); MEAN PLATELET VOLUME 9.6 fL (7.4-11.4); MONOCYTES # (AUTO) 0.7 10^3/uL (0.0-1.0); MONOCYTES % (AUTO) 7.3 %; NEUTROPHILS # (AUTO) 7.6 10^3/uL (1.5-6.6); NEUTROPHILS % (AUTO) 80.5 %; PLT - PLATELET COUNT 151 10^3/uL (130-450); RED BLOOD COUNT 3.33 10^6/uL (4.70-6.10); WHITE BLOOD COUNT 9.4 x10^3/uL (4.8-10.8)
[2021-11-02] MEDS ORDERED: ACETAMINOPHEN 160 MG/5 ML SUSP UDC PO STA (10:59)
[2021-11-02 11:13] LABS: ALBUMIN 3.6 g/dL (3.2-5.5); ALBUMIN/GLOBULIN RATIO 1.2 (1.0-2.2); BILIRUBIN,TOTAL 1.1 mg/dL (0.2-1.0); CALCIUM 8.9 mg/dL (8.5-10.3); CREATININE 1.8 mg/dL (0.6-1.2); MAGNESIUM 2.1 mg/dL (1.7-2.8); POTASSIUM 3.5 mmol/L (3.5-5.0); TOTAL PROTEIN 6.6 g/dL (6.7-8.2)
--- NOTE | 2021-11-02 12:00 | CT Report ---
PROCEDURE: HEAD WO INDICATIONS: fall, struck head and back TECHNIQUE: Noncontrast 4.5 mm thick angled axial sections acquired from the foramen magnum to the vertex. For r adiation dose reduction, the following was used: automated exposure control, adjustment of mA and/or kV according to patient size. COMPARISON: None. FINDINGS: Image quality: Excellent. CSF spaces: Basal cisterns are patent. No extra-axial fluid collections. Ventricles are normal in size and shape. Brain: No midline shift. No intracranial masses or hemorrhage. No area of hypodensity in a vascula r distribution to suggest acute infarction. 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 Age-related parenchymal loss. Skull and face: Calvarium and visualized facial bones are intact, without suspicious lesions. Sinuses: Visualized sinuses and mastoids are clear. IMPRESSION: No acute intracranial abnormality. Reviewed by: Silvio Leroy MD on 11/02/2021 10:59 AM GARY Approved by: Silvio Leroy MD on 11/02/2021 10:59 AM GARY Station ID: [id number]
--- NOTE | 2021-11-02 12:25 | CT Report ---
PROCEDURE: CHEST W INDICATIONS: fall with right rib/back pain CONTRAST: IV CONTRAST: Optiray 320 ml: 100 PO CONTRAST: *NO PO CONTRAST TECHNIQUE: After the administration of intravenous contrast, 1 mm axial images were acquired from the pulmonary apices through the posterior costophrenic angles. Axial 5 mm soft tissue kernel reconstructions were performed as well as 8 mm axial MIP and coronal and sagittal 5 mm reformations. For radiation dose reduction, the following was used: automated exposure control, adjustment of mA and/or kV according to patient size. COMPARISON: CXR 01/08/2021. FINDINGS: Image quality: Excellent. Lungs and pleura: Mild dependent atelectasis. Trace right pleural effusion. There are a a few small p ulmonary nodules. For example left upper lobe 0.4 cm, (3/66); and 0.4 cm, (3/87). Right middle lobe c alcified granuloma. The central airways are clear. There are a few areas of distal mucus airway plugg ing. Mediastinum: Heart size is within normal limits. Moderate coronary artery calcifications. No perica rdial effusion. No mediastinal or hilar adenopathy by size criteria. Thoracic aorta and central pul monary arteries are normal in size. Esophagus is normal in caliber. No hiatal hernia. Bones and chest wall: No suspicious bony lesions. No vertebral body compression fractures. Bridging thoracic spine vertebral body osteophytes. No axillary or supraclavicular adenopathy by size criteri a. The thyroid is normal in size and there are no incidental findings. Gynecomastia. Abdomen: Please see separately dictated at CT abdomen and pelvis. IMPRESSION: 1. No acute fracture. 2. Trace right pleural effusion. 3. A few small pulmonary nodules measuring 0.4 cm or less. A few areas of distal mucus airway pluggin g. Reviewed by: Silvio Leroy MD on 11/02/2021 11:24 AM GARY Approved by: Silvio Leroy MD on 11/02/2021 11:24 AM GARY Station ID: [id number]
--- NOTE | 2021-11-02 12:38 | CT Report ---
PROCEDURE: Abdomen/Pelvis W INDICATIONS: fall with right thoracolumbar pain, RUQ abd pain CONTRAST: IV CONTRAST: Optiray 320 ml: 100 PO CONTRAST: *NO PO CONTRAST TECHNIQUE: After the administration of intravenous contrast, 5 mm thick sections acquired from the diaphragms to the symphysis. 5 mm thick coronal and sagittal reformats were acquired. For radiation dose reducti on, the following was used: automated exposure control, adjustment of mA and/or kV according to jesus ent size. COMPARISON: Same day CT chest. Abdominal ultrasound 01/08/2021. FINDINGS: Image quality: Excellent. ABDOMEN: Lung bases: Trace right pleural effusion. Bibasilar atelectasis. Calcified granuloma. Small hiatal he rnia. Heart size is within normal limits. Solid organs: Multiple well-circumscribed hepatic hypodensities which are consistent with benign cyst s. These are also seen on prior ultrasound. Gallbladder is absent. There is intrahepatic biliary duct al dilatation in the left lobe of the liver, (11/08). Cyst in the body the pancreas measuring 1.2 cm, (11/14). There is a cyst at the uncinate process measuring 1.2 cm, (11/20). No adrenal nodules. No hydr onephrosis. Right kidney superior pole exophytic cyst measuring 3.6 cm, (11/13). This measures 42 Houn sfield units and is a corticated cyst. Several additional small right renal cysts. Some of them have punctate or round calcifications. Left kidney is surgically absent. Peritoneum and bowel: No small bowel obstruction. Diverticulosis. Clip in the left lower quadrant. No free fluid or air. Nodes and vessels: No retroperitoneal or mesenteric adenopathy by size criteria. Aorta and inferior vena cava are normal in size. Circumferential calcified atherosclerotic plaque. Miscellaneous: No ventral hernias. PELVIS: Genitourinary: Bladder wall thickness is normal. Prostate gland is absent. Miscellaneous: No inguinal hernias or adenopathy. Pelvic sidewall clips. Bones: No suspicious bony lesions. No vertebral body compression fractures. IMPRESSION: 1. No acute traumatic injury is identified. No free fluid. 2. Left nephrectomy. Right kidney superior pole mildly complicated cyst measuring 3.6 cm. -Comparison with prior cross-sectional imaging would be very helpful when available. This could also be further characterized with renal MRI with IV contrast or CT. Ultrasound could also be helpful. 3. Small cysts in the pancreas measuring up to 1.2 cm. These could represent small IPMN in this older patient. 4. Prostatectomy. Pelvic sidewall lymph node dissection. 5. Biliary ductal dilatation in the left lobe of the liver. Etiology is uncertain. The extra hepatic bile duct does not appear to be dilated. -This can be further evaluated with MRCP or on MRI renal protocol. Reviewed by: Silvio Leroy MD on 11/02/2021 11:36 AM GARY Approved by: Silvio Leroy MD on 11/02/2021 11:36 AM GARY Station ID: [id number]
[2021-11-02 13:06] VITALS: BP 158/81
== END 2021-11-02 13:40 | disposition home or self-care (01) ==
LOC: ED 09:36
DX: S09.90XA Unspecified injury of head, initial encounter (principal); S30.1XXA Contusion of abdominal wall, initial encounter; W01.0XXA Fall on same level from slipping, tripping and stumbling without subsequent striking against object, initial encounter; I10 Essential (primary) hypertension; N28.1 Cyst of kidney, acquired
CPT/HCPCS: 36415; 70450; 71260; 74177; 80053; 83690; 83735; 83880; 85025; 93005; 96374; 99284; A9270; J1170; Q9967

== ENCOUNTER 2022-02-27 22:54 | Outpatient (CLI) | payer MEDICARE | END 2022-02-27 22:55 | disposition critical access hospital (66) | LOC: EMS 22:54 | DX: R05.9 Cough, unspecified (principal); R50.9 Fever, unspecified; Z20.822 Contact with and (suspected) exposure to COVID-19 | CPT/HCPCS: A0425; A0429 ==

== ENCOUNTER 2022-02-27 23:10 | Emergency (ER) | payer MEDICARE ==
[2022-02-28 00:49] LABS: CORONAVIRUS 229E-RESP PCR NOT DETECTED; CORONAVIRUS HKU1-RESP PCR NOT DETECTED; CORONAVIRUS NL63-RESP PCR NOT DETECTED; CORONAVIRUS OC43-RESP PCR NOT DETECTED
[2022-02-28 00:50] LABS: B. PARAPERTUSSIS- RESP PCR PAN NOT DETECTED; B. PERTUSSIS- RESP PCR PANEL NOT DETECTED; C. PNEUMONIAE- RESP PCR PANEL NOT DETECTED; HUMAN METAPNEUMOVIRUS NOT DETECTED; INFLUENZA A- RESP PCR PANEL NOT DETECTED; INFLUENZA B - RESP PCR PANEL NOT DETECTED; M. PNEUMONIAE- RESP PCR PANEL NOT DETECTED; PARAINFLUENZA VIRUS 1 NOT DETECTED; PARAINFLUENZA VIRUS 2 NOT DETECTED; PARAINFLUENZA VIRUS 3 NOT DETECTED; PARAINFLUENZA VIRUS 4 NOT DETECTED; RHINOVIRUS/ENTEROVIRUS NOT DETECTED; RSV- RESP PCR PANEL NOT DETECTED; SARS-CoV-2 -RESP PCR PANEL DETECTED
[2022-02-28 00:54] LABS: BASOPHILS % (AUTO) 0.4 %; EOSINOPHILS # (AUTO) 0.2 10^3/uL (0.0-0.7); EOSINOPHILS % (AUTO) 1.8 %; HCT - HEMATOCRIT 30.2 % (42.0-52.0); HGB - HEMOGLOBIN 10.5 g/dL (14.0-18.0); LYMPHOCYTES % (AUTO) 8.5 %; MEAN CORPUSCULAR HEMOGLOBIN 32.3 pg (27.0-31.0); MEAN CORPUSCULAR HGB CONC 34.8 g/dL (32.0-36.0); MEAN CORPUSCULAR VOLUME 92.9 fL (80.0-94.0); MONOCYTES # (AUTO) 1.2 10^3/uL (0.0-1.0); MONOCYTES % (AUTO) 10.9 %; NEUTROPHILS # (AUTO) 8.9 10^3/uL (1.5-6.6); PLT - PLATELET COUNT 151 10^3/uL (130-450); RED BLOOD COUNT 3.25 10^6/uL (4.70-6.10); RED CELL DISTRIBUTION WIDTH 13.3 % (12.0-15.0); WHITE BLOOD COUNT 11.4 x10^3/uL (4.8-10.8)
[2022-02-28 01:06] LABS: ALBUMIN 3.3 g/dL (3.2-5.5); ALBUMIN/GLOBULIN RATIO 1.1 (1.0-2.2); BILIRUBIN,TOTAL 0.8 mg/dL (0.2-1.0); CALCIUM 8.5 mg/dL (8.5-10.3); CREATININE 2.3 mg/dL (0.6-1.2); POTASSIUM 3.3 mmol/L (3.5-5.0); TOTAL PROTEIN 6.2 g/dL (6.7-8.2)
--- NOTE | 2022-02-28 01:33 | ED Physician Documentation ---
PD HPI URI - Stated complaint Stated Complaint: C+ exposure - Chief complaint Chief Complaint: Resp - History obtained from History obtained from: Patient, Family - History of Present Illness Timing duration: Days (1) Associated symptoms: Fever, Dry cough Contributing factors: Sick contact - Additional information Additional information: Patient is an 89-year-old male presenting for evaluation of fever and a nonproductive cough that started this evening. He lives at [facility]. He was recently exposed to someone who was COVID-positive. Given feeling well but staff noted this evening that he had a fever of 102. They did give him medication for the fever. He has had a nonproductive cough all day. They did a rapid COVID test which was negative. Have been contacted EMS for transport to the ER. Here patient denies any complaints. He says he feels well and feels like he can go home. He denies weakness, chest pain, difficulty breathing, abdominal pain, dysuria, vomiting or diarrhea.He has been vaccinated for COVID. Review of Systems Constitutional: reports: Fever Nose: denies: Congestion Cardiac: denies: Chest pain / pressure Respiratory: reports: Cough. denies: Dyspnea GI: denies: Abdominal Pain, Nausea, Vomiting, Diarrhea : denies: Dysuria Musculoskeletal: denies: Back pain Neurologic: denies: Generalized weakness PD PAST MEDICAL HISTORY - Past Medical History Cardiovascular: Hypertension, High cholesterol Respiratory: Pneumonia, Other Neuro: Dementia, Other Endocrine/Autoimmune: None GI: Cholelithiasis, Other : Incontinence, Kidney stones Musculoskeletal: Chronic back pain Derm: Eczema, Other - Past Surgical History Past Surgical History: Yes Derm: Skin cancer surgery - Allergies Allergies/Adverse Reactions: Allergies Allergy/AdvReac Type Severity Reaction Status Date / Time No Known Drug Allergies Allergy Verified 02/27/22 23:14 - Social History Does the pt smoke?: No Smoking Status: Never smoker Does the pt drink ETOH?: No Does the pt have substance abuse?: No - POLST Patient has POLST: No POLST Status: Full Code PD ED PE NORMAL - General General: Alert and oriented X 3, No acute distress, Well developed/nourished - HEENT HEENT: Atraumatic, Moist mucous membranes - Neck Neck: Supple, no meningeal sign - Cardiac Cardiac: RRR, No murmur, Strong equal pulses - Respiratory Respiratory: No respiratory distress, Clear bilaterally - Abdomen Abdomen: Normal bowel sounds, Soft, Non tender, Non distended - Derm Derm: Warm and dry - Extremities Extremities: No edema - Neuro Neuro: Normal speech - Psych Psych: Normal mood Results - Vitals Vitals: Vital Signs - 24 hr 02/27/22 02/28/22 23:14 01:41 Temperature 36.6 C 36.6 C Heart Rate 66 88 Respiratory 16 18 Rate Blood Pressure 150/70 H 122/67 O2 Saturation 98 97 Oxygen O2 Source Room air - Labs Labs: Laboratory Tests 02/27/22 02/28/22 02/28/22 23:52 00:46 00:46 WBC 11.4 H RBC 3.25 L Hgb 10.5 L Hct 30.2 L MCV 92.9 MCH 32.3 H MCHC 34.8 RDW 13.3 Plt Count 151 MPV 9.0 Neut # (Auto) 8.9 H Lymph # (Auto) 1.0 L [place] # (Auto) 1.2 H Eos # (Auto) 0.2 Baso # (Auto) 0.0 Absolute Nucleated RBC 0.00 Nucleated RBC % 0.0 Sodium 137 Potassium 3.3 L Chloride 105 Carbon Dioxide 25 Anion Gap 7.0 BUN 25 H Creatinine 2.3 H Estimated GFR (MDRD) 27 L Glucose 109 H Calcium 8.5 Total Bilirubin 0.8 AST 14 ALT 14 Alkaline Phosphatase 72 Total Protein 6.2 L Albumin 3.3 Globulin 2.9 Albumin/Globulin Ratio 1.1 Nasal Adenovirus (PCR) NOT DETECTED Nasal B. parapertussis DNA (PCR) NOT DETECTED Nasal Coronavir 229E PCR NOT DETECTED Nasal Coronavir HKU1 PCR NOT DETECTED Nasal Coronavir NL63 PCR NOT DETECTED Nasal Coronavir OC43 PCR NOT DETECTED Nasal Enterovir/Rhinovir PCR NOT DETECTED Nasal Influenza B PCR NOT DETECTED Nasal Influenza A PCR NOT DETECTED Nasal Parainfluen 1 PCR NOT DETECTED Nasal Parainfluen 2 PCR NOT DETECTED Nasal Parainfluen 3 PCR NOT DETECTED Nasal Parainfluen 4 PCR NOT DETECTED Nasal RSV (PCR) NOT DETECTED Nasal B.pertussis DNA PCR NOT DETECTED Nasal C.pneumoniae (PCR) NOT DETECTED Syed Human Metapneumo PCR NOT DETECTED Nasal M.pneumoniae (PCR) NOT DETECTED Nasal SARS-CoV-2 (PCR) DETECTED A PD MEDICAL DECISION MAKING - ED course Complexity details: reviewed results, re-evaluated patient, d/w patient, d/w family ED course: Patient evaluated for fever and cough. Vital signs are stable here. No signs of respiratory distress. Respiratory panel is positive for COVID. Chest x-ray is clear for pneumonia. Screening labs obtained. Patient has chronic kidney disease with mild worsening. Do not think he requires admission at this time.Given renal impairment, paxlovid is contraindicated. Family is at the bedside. Patient appears to be at his baseline. Comfortable with plan for discharge and aware of strict return precautions. Departure - Departure Disposition: 01 Home, Self Care Clinical Impression: COVID-19 CKD (chronic kidney disease) Qualifiers: Chronic kidney disease stage: unspecified stage Qualified Code(s): N18.9 - Chronic kidney disease, unspecified Condition: Stable Instructions: ED Viral Syndrome Comments: You were evaluated for fever and cough and found to be positive for COVID-19. Please follow quarantine guidelines per CDC recommendations. Your renal function is also slightly worse than your baseline. Please make sure to stay hydrated with drinking plenty of fluids. Please also use acetaminophen as needed for fever or pain. I would avoid NSAIDs like ibuprofen. If anytime you have any worsening symptoms such as trouble breathing, vomiting, confusion please return to the emergency department. Discharge Date/Time: 02/28/22 01:41
[2022-02-28 01:43] VITALS: BP 122/67
--- NOTE | 2022-02-28 01:43 | XRAY Report ---
PROCEDURE: Chest 1 View X-Ray INDICATIONS: fever/cough TECHNIQUE: One view of the chest was acquired. COMPARISON: Chest x-ray 01/08/2021. FINDINGS: Surgical changes and devices: None. Lungs and pleura: No pleural effusions or pneumothorax. No acute consolidation. Mediastinum: Mediastinal contours appear normal. Heart size is normal. Bones and chest wall: No suspicious bony lesions. Overlying soft tissues appear unremarkable. IMPRESSION: 1. No acute airspace opacities to suggest pneumonia. Reviewed by: Buck Dickerson MD on 02/28/2022 1:41 AM PDT Approved by: Buck Dickerson MD on 02/28/2022 1:41 AM PDT Station ID: [id number]
== END 2022-02-28 01:41 | disposition home or self-care (01) ==
LOC: EDSEX → EDUNIT# → ED 23:10
DX: U07.1 COVID-19 (principal); N18.9 Chronic kidney disease, unspecified
CPT/HCPCS: 36415; 80053; 85025; 87633; 99282; 99284

== ENCOUNTER 2022-09-12 10:46 | Outpatient (CLI) | payer MEDICARE ==
--- NOTE | 2022-09-12 11:44 | XRAY Report ---
PROCEDURE: Finger(s) RT INDICATIONS: PAIN AND SWELLING IN RIGHT MIDDLE FINGER TECHNIQUE: AP hand, 3 views of the third finger(s) acquired. COMPARISON: None FINDINGS: Bones: No fractures or dislocations. No suspicious bony lesions. Scattered IP degenerative narrowi ng. Soft tissues: No suspicious soft tissue calcifications. IMPRESSION: No visualized acute fracture or dislocation. However, occult injury cannot be excluded. Recommend austen rt interval imaging follow-up in 7-10 days as clinically indicated for additional evaluation. Reviewed by: Citlali Villanueva MD on 09/12/2022 11:43 AM PST Approved by: Citlali Villanueva MD on 09/12/2022 11:43 AM PST Station ID: [id number]
== END 2022-09-12 10:47 | disposition home or self-care (01) ==
LOC: DI 10:46
PROVIDERS: ATTEND Nurse Practitioner Gerontology
DX: M79.644 Pain in right finger(s) (principal)